=== PATIENT | male | born 1960 | race Hispanic/Latino ===

== ENCOUNTER 2017-03-27 11:20 | Day surgery (SDC) | payer BC ==
[2017-03-19 06:42] VITALS: BMI 30.7
[2017-03-27] MEDS ORDERED: Lactated Ringer's 1,000 ML IV SCH (12:04)
[2017-03-27] MEDS ORDERED: Propofol 10 mg/ml Inj (20 ML) ONE ×4 (12:39→14:01)
[2017-03-27] MEDS ORDERED: Glycopyrrolate 0.2 mg/ml (2ml vial) ONE (13:30)
[2017-03-27] MEDS ORDERED: ePHEDrine 50 mg/ml Inj ONE ×2 (13:32→13:43)
[2017-03-27 14:24] VITALS: O2SAT 99
[2017-03-27 15:08] VITALS: BP 127/76; PULSE 67; RESP 16; TEMP 97.5
== END 2017-03-27 15:24 | disposition home or self-care (01) ==
LOC: ENDO 11:20
PROVIDERS: ATTEND Internal Medicine
DX: Z12.11 Encounter for screening for malignant neoplasm of colon (principal); D12.4 Benign neoplasm of descending colon; K63.5 Polyp of colon; D17.5 Benign lipomatous neoplasm of intra-abdominal organs; K57.30 Diverticulosis of large intestine without perforation or abscess without bleeding; K64.8 Other hemorrhoids; E78.5 Hyperlipidemia, unspecified; I10 Essential (primary) hypertension; Z80.0 Family history of malignant neoplasm of digestive organs; Z86.010 Personal history of colon polyps
CPT/HCPCS: 45380; 45390; 88305; J2001; J2704; J7040; J7120

== ENCOUNTER 2018-04-21 06:45 | Day surgery (SDC) | payer BC ==
[2018-04-21] MEDS ORDERED: Propofol 10 mg/ml Inj (20 ML) ONE ×3 (08:01→08:34)
[2018-04-21] MEDS ORDERED: Sodium Chloride 0.9% 1,000 ML IV SCH (09:00)
[2018-04-21 09:48] VITALS: BP 139/83; PULSE 63; RESP 18; TEMP 97.7; O2SAT 98
== END 2018-04-21 10:35 | disposition home or self-care (01) ==
LOC: ENDO 06:45
PROVIDERS: ATTEND Internal Medicine
DX: Z12.11 Encounter for screening for malignant neoplasm of colon (principal); Z80.0 Family history of malignant neoplasm of digestive organs; K63.5 Polyp of colon; K57.30 Diverticulosis of large intestine without perforation or abscess without bleeding; K64.8 Other hemorrhoids; Z86.010 Personal history of colon polyps
CPT/HCPCS: 45380; 88305; J2001; J2704; J7030; J7040